=== PATIENT | female | born 1975 | race Two or more races ===

== ENCOUNTER 2020-03-01 14:35 | Emergency (ER) | payer MEDICAID ==
[~2020-03-01] VITALS: Ht 170.2 cm; Wt 94.0 kg
[2020-03-01 15:21] LABS: CHLORIDE 107 mEq/L (98-107)
[2020-03-01 15:26] LABS: ETHANOL BLOOD < 10 mg/dL
[2020-03-01 15:31] LABS: BASOPHILS % 0.5 % (0.0-2.0); EOSINOPHILS % 0.8 % (0.0-5.0); HEMATOCRIT. 39.9 % (36.0-48.0); HEMOGLOBIN. 13.2 g/dL (12.0-16.0); LYMPHOCYTES % 16.6 % (20.0-50.0); MEAN CORPUSCULAR VOLUME 81.4 fL (81.0-99.0); NEUTROPHILS % 76.1 % (40.0-76.0); RED BLOOD CELL COUNT 4.91 mill/uL (4.2-5.4)
[2020-03-01 15:33] LABS: INR 1.2; PROTHROMBIN TIME 12.1 sec (9.6-11.0)
[2020-03-01 16:45] VITALS: BP 120/80
[2020-03-01 17:21] LABS: MEAN PLATELET VOLUME 10.6 fl (7.4-10.4); PLATELET 201 x1000/uL (130-400)
[2020-03-01 17:23] LABS: PLATELET ESTIMATE NORMAL
== END 2020-03-01 16:50 | disposition home or self-care (01) ==
LOC: ER 14:47 → EDBEDREQ 14:48 → ER 16:50 → CANBEDREQ 18:57
DX: G45.9 Transient cerebral ischemic attack, unspecified (principal); R03.0 Elevated blood-pressure reading, without diagnosis of hypertension; G93.89 Other specified disorders of brain; Z85.841 Personal history of malignant neoplasm of brain; Z98.890 Other specified postprocedural states
CPT/HCPCS: 36415; 71045; 80053; 80320; 85025; 93005; 99285; G0480